=== PATIENT | female | born 1995 | race Caucasian/White ===

== ENCOUNTER 2019-12-22 22:20 | Emergency (ER) | payer OTHER, SELFPAY ==
[2019-12-22 22:24] VITALS: BP 149/82; PULSE 97; RESP 16; TEMP 36.2; O2SAT 100
--- NOTE | 2019-12-22 22:41 | ED.PREGNANCY ---
HPI - General Chief complaint: Vaginal Bleeding Stated complaint: preg, bleeding Time Seen by Provider: 12/22/19 22:39 Source: patient and RN notes reviewed Mode of arrival: other Limitations: no limitations History of Present Illness HPI Narrative: Pt is a 24 y/o female who presents to the ED with c/o vaginal bleeding that began an hour ago after having sexual intercourse. Pt is 12 weeks gestation. She states that she passed a blood clot, but denies passing any tissue. Pt denies being in any pain. Pt has confirmed her with her OBGYN, Dr. Sandhu. Pt denies nausea, vomiting, dysuria, urinary hesitancy, and urinary frequency. MD Complaint: vaginal bleeding Onset (ago): hour(s) (1) Pain Consistency: other (none) Associated symptoms: denies other symptoms Vaginal discharge: none Vaginal bleeding: clots Patient : Yes Number of Weeks : 12 Review of Systems Review of Systems: All systems reviewed & are unremarkable except as noted in HPI and below Gastrointestinal: Gastrointestinal: Denies nausea and Denies vomiting Genitourinary: Genitourinary: Reports abnormal vaginal bleeding, Denies nocturia, Denies dysuria and Denies urinary hesitancy PMFSH Past Medical History Medical History (Updated 12/22/19 @ 22:58 by Brannon Sigala MD) Patient denies significant medical history Surgical History Surgical History (Updated 12/22/19 @ 22:49 by Ginger Connelly) Surgical history unknown Social History Social History (Updated 12/22/19 @ 22:49 by Ginger Connelly) Smoking status: Never smoker Exam Const: General: healthy appearing and no acute distress Nutritional Appearance: well nourished HENMT: Mouth: Yes lip normal and Yes moist mucous membranes Eyes: Conjunctivae: conjunctivae normal Pupils: Equal, round and reactive pupils present Resp: Effort & Inspection: normal respiratory effort Auscultation: clear to auscultation bilaterally Cardio: Rate: regular rate Rhythm: regular rhythm Heart sounds: no murmurs GI: GI Palp: Yes Soft to palpation and No Tenderness to palpation present (GI) Auscultation: normal bowel sounds Back/Spine/Pelvis: Back: other (Full ROM) Skin: General skin exam: normal color, dry skin and other (warm) Neuro: General: patient oriented x3 and other (alert) Speech: normal speech Extrem: General: full ROM Psych: Mental Status: mental status grossly normal Affect: normal affect Course Vital Signs Vital signs: Vital Signs Temperature 36.2 C L 12/22/19 22:24 Pulse Rate 97 12/22/19 22:24 Respiratory Rate 16 12/22/19 22:24 Blood Pressure 149/82 H 12/22/19 22:24 Pulse Oximetry 100 12/22/19 22:24 Temperature 36.2 C L 12/22/19 22:24 Pulse Rate 86 12/23/19 00:07 Respiratory Rate 16 12/23/19 00:07 Blood Pressure 119/88 12/23/19 00:07 Pulse Oximetry 100 12/23/19 00:07 Procedures Other Procedure Procedure 1: Other Procedure: Bedside Ultrasound Fetus grossly normal for stated dates Reassuring movment FHR 157 MDM - OB/Uterine Contractions MDM Narrative Medical decision making narrative: Threatened , subchorionic hematoma, Rh negative Medical Records Attestation: I reviewed the patient's medical records. Lab Data Attestation: I reviewed the patient's lab results. Labs: Lab Results 12/22/19 Range/Units 22:57 Blood Type O Positive Doses of RhIg Required 0 Discharge Plan Discharge Clinical Impression: Vaginal bleeding affecting early Patient Disposition: Home, Self-Care Condition: Stable Instructions: Threatened Miscarriage (ED) Follow-up/Referrals: Fariba Sandhu MD [Physician] - UNKNOWN,DOCTOR [Primary Care Provider] - Discharge Date/Time: 12/23/19 00:45
[2019-12-23 00:07] VITALS: BP 119/88; PULSE 86; RESP 16; O2SAT 100
== END 2019-12-23 00:45 | disposition home or self-care (01) ==
PROVIDERS: Emergency Provider Emergency Medicine
DX: O20.9 Hemorrhage in early pregnancy, unspecified (principal); Z3A.12 12 weeks gestation of pregnancy
CPT/HCPCS: 36415; 86900; 86901; 99282

== ENCOUNTER 2020-06-20 00:03 | Inpatient (IN) | payer OTHER, SELFPAY ==
[2020-06-20] VITALS (109 sets, daily range): BP systolic 94–192; BP diastolic 42–124; PULSE 51–141; RESP 16; TEMP 36.1–37; O2SAT 92–100; BMI 30.4
[2020-06-20] MEDS: LACTATED RINGERS 1,000 ML 125 ML IV CONT (01:30)
--- NOTE | 2020-06-20 01:46 | LDADM ---
This patient, Doreen Cobb, was admitted to Labor/Delivery/Recovery 108 on 06/20/20 at 00:03. Plans for labor, pain management and were discussed with patient. Patient/family oriented to hospital policies and general routines including ID bracelet, bed and alarms, visiting hours, pain management, procedures, bathroom and other care routines, personal items, smoking policy, room service/diet and guest tray routines, infant security routines, and visiting hours. Patient/Family are encouraged to report perceived risks to care and to ask questions if they do not understand what they are told or what they should do. See OBIX for further documentation.
[2020-06-20 02:02] LABS: Basophils Percent Auto 0.2 % (0.2-1.2); Eosinophils Percent Auto 0.1 % (0-4.4); Hematocrit 39.1 % (37.0-47.0); Hemoglobin 13.3 g/dL (12.0-15.0); Immature Granulocyte Absolute 0.05 K/mm3 (0.00-0.031); Immature Granulocyte Percent A 0.4 % (0-0.5); Lymphocytes Percent Auto 18.4 % (18.3-44.2); Mean Corpuscular Hemoglobin 29.9 pg (26-34); Mean Corpuscular Volume 87.9 fl (80-100); Mean Platelet Volume 10.5 fl (7.4-10.4); Monocytes Absolute Auto 0.6 K/mm3 (0.1-0.6); Monocytes Percent Auto 4.5 % (2.6-8.5); Neutrophils Absolute Auto 9.5 K/mm3 (1.3-6.7); Neutrophils Percent Auto 76.4 % (45.5-73.1); Platelet Count Result 229 k/mm3 (150-375); Red Blood Count 4.45 M/mm3 (4.2-5.4); Red Cell Distribution Width 13.5 % (11.5-14.5); White Blood Count 12.5 K/mm3 (4.5-10.0)
[2020-06-20 02:04] LABS: Glucose Point of Care 119 (65-105)
--- NOTE | 2020-06-20 02:26 | WPDANESEPPF ---
Anes - Initial Pre Proc Eval Procedure: labor epidural Date/Time: 06/20/20 02:26 Surgeon: Fariba Sandhu MD Pre Op Diagnosis: labor pain Pre Op Diagnosis: Contractions Patient Data Age: 25 Gender: F Height: 1.55 m Weight: 73 kg Last Vital Signs Pulse 86 06/20/20 02:24 BP 102/71 06/20/20 02:24 Pulse Ox 100 06/20/20 02:23 Allergies Allergy/AdvReac Type Severity Reaction Status Date / Time No Known Drug Allergies Allergy Unknown Unknown Verified 06/07/20 13:39 Home Medications Medication Instructions Recorded Confirmed Type PNV cmb#95-ferrous fumarate-FA 1 tablet PO DAILY 06/07/20 06/07/20 History [] insulin NPH isoph U-100 human 5 unit SUBCUT HS 06/07/20 06/07/20 History [Humulin N NPH U-100 Insulin] Laboratory Tests 06/20/20 06/20/20 06/20/20 01:54 01:57 01:57 WBC 12.5 K/mm3 H K/mm3 (4.5-10.0) RBC 4.45 M/mm3 M/mm3 (4.2-5.4) Hgb 13.3 g/dL g/dL (12.0-15.0) Hct 39.1 % % (37.0-47.0) MCV 87.9 fl fl (80-100) MCH 29.9 pg pg (26-34) MCHC 34.0 g/dl g/dl (32-36) RDW 13.5 % % (11.5-14.5) Plt Count 229 k/mm3 k/mm3 (150-375) MPV 10.5 fl H fl (7.4-10.4) Immature Gran % (Auto) 0.4 % % (0-0.5) Neut % (Auto) 76.4 % H % (45.5-73.1) Lymph % (Auto) 18.4 % % (18.3-44.2) Angelina % (Auto) 4.5 % % (2.6-8.5) Eos % (Auto) 0.1 % % (0-4.4) Baso % (Auto) 0.2 % % (0.2-1.2) Lymph # (Auto) 2.30 K/mm3 K/mm3 (0.9-3.2) Angelina # (Auto) 0.6 K/mm3 K/mm3 (0.1-0.6) Eos # (Auto) 0.0 K/mm3 K/mm3 (0-0.3) Baso # (Auto) 0.0 K/mm3 K/mm3 (0.0-0.1) Abs Immat Gran (auto) 0.05 K/mm3 H K/mm3 (0.00-0.031) Absolute Neuts (auto) 9.5 K/mm3 H K/mm3 (1.3-6.7) Absolute Nucleated RBC 0.0 K/mm3 K/mm3 (0.0-0.012) Nucleated RBC % 0.0 % % (0.0-0.2) POC Capillary Glucose 119 mg/dl H mg/dl (65-105) RPR Pending Patient hx anesthesia problems: none Family hx anesthesia problems: none [facility] Past Medical History Medical History (Updated 12/24/19 @ 00:01 by Huma Miller) Patient denies significant medical history Surgical History Surgical History (System 12/23/19 @ 07:51 by Aurelia Philip) Surgical history unknown Family History Family History (Updated 06/07/20 @ 13:42 by Paul Castañeda RN) Grandparent Diabetes mellitus Hypertension Social History Social History (System 12/23/19 @ 07:51 by Aurelia Philip) Smoking status: Never smoker Substance use: never Spiritual care concerns: No Anes - Eval Final PreProcedure Day of Procedure 06/20/20 02:26 Patient weight: obese ASA classification: III Anesthesia type and monitoring: regional epidural Informed Consent: The patient's anesthetic plan and its attendant risks and benefits were discussed with the patient/family/POA. Questions were solicited and answers provided to the satisfaction of the patient/family/POA.
[2020-06-20 04:18] LABS: Glucose Point of Care 104 (65-105)
[2020-06-20] MEDS: OXYTOCIN 30 UNITS/NS 500 ML 30 UNITS/500 ML BAG IV CONT (06:50)
[2020-06-20 07:37] LABS: Glucose Point of Care 111 (65-105)
--- NOTE | 2020-06-20 07:46 | WPDOBADMIT ---
Obstetrics - Admit Note Admission Note: 25y/o here in spontaneous labor. GDM insulin controlled. Appropriate size baby. Anticipate . 8cm AROM performed. record reviewed. No pertinent additions to the history and/or any subsequent changes in the physical findings that are not consistent with the expected course of the were found. Additions to the history and/or subsequent changes in the physical findings follow. None.
--- NOTE | 2020-06-20 09:36 | PM.OBPRVD ---
OB - Delivery Note Procedure Delivery date: 06/20/20 Induction method: none Delivery augmentation: rupture of membranes Delivery monitor: external FHT and external uterine Episiotomy description: None Laceration description: None Anesthesia type: Epidural Narrative: Called @ 919 and informed had delivered in the bed with assist from RN. Upon arrival cord blood and gasses had already been collected. Placenta delivered without difficulty. Mother and baby stable. [place] Baby Date of : 06/20/20 Time of : 09:16 Weeks of gestation at delivery: 37 gender: Male presentation: vertex Placenta delivery description: Spontaneous
[2020-06-20] MEDS: OXYTOCIN 30 UNITS/NS 500 ML 30 UNITS/500 ML BAG 125 UNITS IV CONT (10:00)
[2020-06-20 11:11] LABS: Rapid Plasma Reagin Non-Reactive (NonReactive)
--- NOTE | 2020-06-20 16:09 | PC.NURSE ---
1350 Pt admitted to second floor OB, room 286 per wheelchair from labor and delivery after spontaneous vaginal delivery of viable male at 0916 today with Radha BRYANT for Dr Sandhu. Mother is a and is choosing to breast feed infant. FOB present for delivery, not here at this time. Admission folder reviewed with pt; pt's assessment WNL, and VSS.
[2020-06-21 05:34] LABS: Hemoglobin 10.9 g/dL (12.0-15.0)
--- NOTE | 2020-06-21 07:43 | P.PNOB_ITS ---
OB - PN: Subj Subjective Date/time seen: 06/21/20 07:43 Patient comments: no complaints, pain well controlled and other (Lochia similar to menses) [place] baby status: doing well OB - PN: Obj Data Labs CBC & Chem 7: 06/21/20 05:28 Labs: Laboratory Results - last 24 hr 06/20/20 06/21/20 01:57 05:28 Hgb 10.9 L Hct 33.0 L RPR Non-reactive OB - PN A/P Plan day: 1 (s/p vaginal delivery, doing well) Plan: routine care and discharge home (Follow up in 4 weeks) Time Spent With Patient Time: Total time spent is greater than 50% in coordination of care (as documented) at patient's floor/unit and/or counseling patient: Time with patient: less than 15 minutes Exam Const: General: no acute distress GI: Inspection: other (Fundus firm and nontender at umbilicus) GI Palp: Yes Soft to palpation and No Tenderness to palpation present (GI) Extrem: General: no edema
[2020-06-21 07:45] VITALS: BP 113/71; PULSE 67; RESP 16; TEMP 36.4; O2SAT 99
--- NOTE | 2020-06-21 10:05 | PC.NURSE ---
Consulted with patient, mother called out for assist with waking , reporting sleepiness since circumcision . This is mother's third child to breastfeed. Reviewed feeding cues, frequencies, duration of feedings, feeding elimination flow sheet, and signs of adequate intake. Demonstrated stimulation techniques to wake for feeding. Infant easily awoken and showing feeding cues. Assisted with to breast. Reviewed positioning/alignment in cross cradle, holding breast in U hold and guided asymmetrical latch on. was able to latch correctly with first attempt. Infant nursed eagerly, with steady draws and frequent swallowing noted. Reviewed signs of a correct latch, effective nursing and suck swallow ratio. was able to maintain latch without discomfort to mother. Nipple care reviewed. Suggested to stimulate while feeding to keep infant awake and nursing effectively for increased intake and to assist with maintaining deep latch. Demonstrated how to adjust latch more deeply while feeding. Instructed mother to call out for RN assistance if she is unable to latch for feeding or she has discomfort with nursing. Instructed feeding should be initiated three hours from start of last feeding or if feeding cues are noted before. Mother voiced understanding of information shared. Mother wishes for discharge after 24 hours. Observed mother verbalizes she is able to independently latch infant with appropriate positioning/alignment. She denies any nipple discomfort, is feeding as required and waking infant to feed if needed. Infant has had at least 8 effective feedings in the past 24 hours, and is currently meeting outcomes for weight, output, jaundice and feeding frequencies. Mother states she feels confident to continue effective at home. Reviewed transition to breast milk, signs of adequate intake, and engorgement/relief. Instructed to call ICP if intake/output less than required. Reviewed regular medications mother is taking. Information provided per [place]. Reviewed community resources on the [facility] website and in the Mom/Baby guide. Information on outpatient services provided. Mother has no further questions at this time.
[2020-06-22 10:09] VITALS: BP 121/79; PULSE 85; RESP 16; TEMP 36.6; O2SAT 99
--- NOTE | 2020-07-11 08:12 | PM.OBDSVD ---
DS: Admitting Diagnosis Admitting Diagnosis Admitting Diagnosis: Contractions DS: Discharge Diagnosis Discharge Diagnosis (1) Vaginal delivery: Code(s): O80 - Encounter for full-term uncomplicated delivery Status: Acute OB - DS: Summary OB Procedures : None OB Procedures Intrapartum: Spontaneous Vag Delivery OB Procedures: : None Time Spent with Patient Time attestation: Total time spent providing and/or coordinating discharge services: DS: Data Data Completed and Pending Completed studies during hospitalization: Pending at discharge 06/20/20 09:22 Surgical [PTH] Routine Discharge Plan Discharge Attending physician on discharge: Fariba Sandhu Consulting providers: David Alexandre ; Caitlyn Holloway Discharging Clinician: Marie Angel Patient Disposition: Home, Self-Care Activity: may shower and pelvic rest Diet: regular Discharge Instructions: Education: Mom and Baby Guide Given to: Mother Follow-Up: Call your delivering provider's office for an appointment to be seen in: 4 Weeks Mom and baby should come to the [facility] for the follow-up appointment. Appointment Date/Time: June 22, 2020 at 10:00 am What to expect at your follow-up visit: Blood Pressure Check Physical Assessment Call [phone] if you are unable to keep your appointment time. BREAST CARE: * Wear a snug supportive bra. * For engorgement discomfort: Breast Feeding: * Apply warm moist washcloths * Express milk as needed to relieve engorgement * Wear loose clothing * For sore nipples: * Identify correct latch-on * Apply warm moist washcloths before and after nursing * Air dry nipples after nursing * May apply Lansinoh cream to nipples EPISIOTOMY/PERINEAL CARE: * Until bleeding stops, use your hernesto bottle after urinating * Change your pad frequently throughout the day * You may take sitz baths several times a day (fill your bathtub with warm water and soak for 20 minutes.) Do NOT bathe in the water * No tub baths until seen by your physician - You may shower ACTIVITY: * Rest as much as possible. * Do not exercise or lift anything heavier than your baby (such as laundry or other children.) * Avoid stairs or driving as much as possible. * Do not put anything into the vagina. No douching, tampons, or sexual activity until seen by physician. NOTIFY PHYSICIAN IF YOU HAVE ANY QUESTIONS OR IF ANY OF THE FOLLOWING SYMPTOMS OCCUR: * If your perineum becomes red, swollen, or more painful than what you have experienced in the hospital. * If your vaginal bleeding becomes foul smelling. * If your vaginal bleeding becomes more heavy than a period or if your bleeding changes from pink to bright red. However, you may pass an occasional walnut-sized clot once or twice for the first week . * If you experience a sharp, shooting pain in your calves. * If you discover a hard, reddened area on your breast or if you experience flu-like symptoms. DIET: * Eat regular, well-balanced meals. * Drink plenty of fluids daily. If , drink to thirst. Patient Instructions: Your Baby (DC), and Nipple Soreness (DC), and Breast Engorgement (DC) Stand Alone Forms: General Discharge Information Follow-up/Referrals: Caitlyn Holloway CNM [Certified Nurse [employer] Supervisor] - 4 Weeks Discharge Medications: New ibuprofen 600 mg Tablet 600 mg PO Q6H PRN (Reason: Cramping) Qty: 60 RF: 0 Continued PNV cmb#95-ferrous fumarate-FA [] 28 mg iron- 800 mcg Tablet 1 tablet PO DAILY RF: 0 Discontinued Humulin N NPH U-100 Insulin 100 unit/mL Suspension 5 unit SUBCUT HS RF: 0 Date of admission: 06/20/20 00:03 Primary Care Provider: UNKNOWN,DOCTOR Admitting Provider: Marie Angel Attending physician on
== END 2020-06-21 12:27 | disposition home or self-care (01) | DRG 560 ==
LOC: ANHLDR 01:41 → ANHOB2 06-21 07:44 → ANHLDR 06-22 11:22 → ANHOB2 06-22 11:22
PROVIDERS: Advanced Practice Midwife; Obstetrics & Gynecology; Admitting Provider Obstetrics & Gynecology; Visit Provider Obstetrics & Gynecology
DX: O24.424 Gestational diabetes mellitus in childbirth, insulin controlled (principal); O69.89X0 Labor and delivery complicated by other cord complications, not applicable or unspecified; Z3A.37 37 weeks gestation of pregnancy; Z37.0 Single live birth
CPT/HCPCS: 36415; 85014; 85018; 85025; 86592; 86850; 86900; 86901; 88307; J2590; J7120

== ENCOUNTER 2021-07-31 10:43 | Inpatient (IN) | payer OTHER, SELFPAY ==
[2021-07-31] VITALS (13 sets, daily range): BP systolic 80–138; BP diastolic 15–101; PULSE 46–83; RESP 16; TEMP 36.1–36.9; O2SAT 100; BMI 30.8
--- NOTE | ~2021-07-31 | US_ITS ---
EXAMINATION: US OB limited DATE: 07/31/2021 11:27 INDICATION: position assessment during late third trimester TECHNIQUE: Real-time ultrasound of the pelvis was performed. The interpreting radiologist was not pre sent for the study. COMPARISON: None. FINDINGS: There is a single living fetus in vertex presentation. The placenta is to the right. IMPRESSION: 1. Single living fetus in vertex presentation. Reviewed, dictated and finalized at location B.
--- OUTSIDE RECORDS SUMMARY | 2021-07-31 11:00 | XMS_ITS | Encounter Summary ---
:1995 Author Care Team Providers Name Role Phone Tali (Ob) Primary Care Provider [phone] Reason for Visit None recorded. Assessment and Plan 1. Gestational diabetes mellitus , class A>1< ? non-stress test Discussion Note: None recorded.Patient educational handouts: No information available. Plan of Care Reminders Provider Appointments Nst 08/01/2021 Nst, , EQ UIP 10:30AM ? Ob Routine 08/04/2021 Lexus Rodríguez, 11:15AM CNM ? Nst 08/04/2021 Nst, , EQUI P 10:30AM ? Nst 08/08/2021 Nst, , EQUI P 9:30AM ? Ob Routine 08/11/2021 Anabel Dubose 10:00AM MD [facility] ? Nst 08/11/2021 Nst, , EQUI P 9:30AM ? Nst 08/15/2021 Nst, , EQUI P 9:30AM ? Ob Routine 08/18/2021 Tamika Th erese 10:30AM MD [facility] ? U/s Ob 08/18/2021 Ultrasound , TECH Growth 10:00AM ? Nst 08/18/2021 Nst, , EQUI P 9:30AM ? Follow up on or around Joss Dubose 09/22/2021 MD [facility] Lab None ? ? recorded. Referral None ? ? recorded. Procedures None ? ? recorded.
--- OUTSIDE RECORDS SUMMARY | 2021-07-31 11:00 | XMS_ITS | Encounter Summary ---
:1995 Author Care Team Providers Name Role Phone Tali (Ob) Primary Care Provider [phone] Reason for Visit OB visit Assessment and Plan Assessment Note Patient is ___weeks . Discu ssed plan. 1. Routine care Discussion Note: None recorded.Patient educational handouts: No [...] Routine 08/18/2021 Tamika Th erese 10:30AM MD Martio ? U/s Ob 08/18/2021 Ultrasound , TECH Growth 10:00AM ? Nst 08/18/2021 Nst, , EQUI P 9:30AM ? Follow up on or around Joss Dubose 09/22/2021 MD [facility] Lab None ? ? recorded. Referral None ? ? recorded. Procedures None ?
--- OUTSIDE RECORDS SUMMARY | 2021-07-31 11:01 | XMS_ITS | Encounter Summary ---
:1995 Author Care Team Providers Name Role Phone Tali (Ob) Primary Care Provider [phone] Reason for Visit None recorded. Assessment and [...]
--- OUTSIDE RECORDS SUMMARY | 2021-07-31 11:01 | XMS_ITS | Encounter Summary ---
:1995 Author Care Team Providers Name Role Phone Tali (Ob) Primary Care Provider [phone] Reason for Visit OB visit Assessment and Plan 1. Gestational diabetes mellitus , class A>1< Discussion Note: None recorded.Patient educational handouts: No [...] ? recorded. Procedures None ? ? recorded. Surgeries None ? ?
--- OUTSIDE RECORDS SUMMARY | 2021-07-31 11:02 | XMS_ITS | Encounter Summary ---
:1995 Author Care Team Providers Name Role Phone Tali (Ob) Primary Care Provider [phone] Reason for Visit None recorded. Assessment and [...]
--- OUTSIDE RECORDS SUMMARY | 2021-07-31 11:02 | XMS_ITS | Encounter Summary ---
:1995 Author Care Team Providers Name Role Phone Tali (Ob) Primary Care Provider [phone] Reason for Visit None recorded. Assessment and Plan 1. Gestational diabetes mellitus , class A>1< ? US, obstetric, follow-up ? US, obstetric, biophysical profile + non-stress test Discussion Note: None recorded.Patient educational handouts: No information available. Plan of Care Reminders Provider Appointments Nst 08/01/2021 Nst, , EQ UIP 10:30AM ? Ob Routine 08/04/2021 Lexus E 11:15AM ANNETTE Rodríguez ? Nst 08/04/2021 Nst, , EQUI P 10:30AM ? Nst 08/08/2021 Nst, , EQUI P 9:30AM ? Ob Routine 08/11/2021 Anabel Dubose 10:00AM MD [facility] ? Nst 08/11/2021 Nst, , EQUI P 9:30AM ? Nst 08/15/2021 Nst, , EQUI P 9:30AM ? Ob Routine 08/18/2021 Tamika Th erese 10:30AM MD Mar[facility] ? U/s Ob Growth 08/18/2021 Ult rasound, 10:00AM TECH ? Nst 08/18/2021 Nst, , EQUI P 9:30AM ? Follow up on or around Joss Dubose 09/22/2021 MD [facility] Lab None ? ? recorded. Referral None ? ?
--- OUTSIDE RECORDS SUMMARY | 2021-07-31 11:02 | XMS_ITS | Encounter Summary ---
:1995 Author Care Team Providers Name Role Phone Tali (Ob) Primary Care Provider [phone] Reason for Visit None recorded. Assessment and [...]
--- OUTSIDE RECORDS SUMMARY | 2021-07-31 11:03 | XMS_ITS | Encounter Summary ---
:1995 Author Care Team Providers Name Role Phone Tali (Ob) Primary Care Provider [phone] Reason for Visit OB visit Assessment and [...]
--- OUTSIDE RECORDS SUMMARY | 2021-07-31 11:04 | XMS_ITS | Encounter Summary ---
:1995 Author Care Team Providers Name Role Phone Tali (Ob) Primary Care Provider [phone] Reason for Visit None recorded. Assessment and [...]
--- OUTSIDE RECORDS SUMMARY | 2021-07-31 11:04 | XMS_ITS | Encounter Summary ---
:1995 Author Care Team Providers Name Role Phone Tali (Ob) Primary Care Provider [phone] Reason for Visit OB visit OB [id number] EDC 08/11/2021 LMP 10/26/2020 Assessment and Plan Assessment Note Patient is __35_weeks . Dis cussed plan. 1. Routine care Discussion Note: None [...]
--- OUTSIDE RECORDS SUMMARY | 2021-07-31 11:05 | XMS_ITS | Encounter Summary ---
:1995 Author Care Team Providers Name Role Phone Tali (Ob) Primary Care Provider [phone] Reason for Visit None recorded. Assessment and [...]
--- OUTSIDE RECORDS SUMMARY | 2021-07-31 11:05 | XMS_ITS | Encounter Summary ---
:1995 Author Care Team Providers Name Role Phone Tali (Ob) Primary Care Provider [phone] Reason for Visit None recorded. Assessment and Plan 1. condition affecting obs tetrical care of mother ? US, obstetric, biophysical profile Discussion Note: None recorded.Patient educational handouts: No [...] P 9:30AM ? Ob Routine 08/18/2021 Tamika Ayala erese 10:30AM MD [facility] ? U/s Ob Growth 08/18/2021 Ult rasound, 10:00AM TECH ? Nst 08/18/2021 Nst, , EQUI P 9:30AM ? Follow up on or around Joss Dubose 09/22/2021 MD [facility] Lab None ? ? recorded. Referral None ? ? recorded. Procedure
--- OUTSIDE RECORDS SUMMARY | 2021-07-31 11:05 | XMS_ITS | Encounter Summary ---
:1995 Author Care Team Providers Name Role Phone Tali (Ob) Primary Care Provider [phone] Reason for Visit OB visit OB [id number] EDC 08/11/2021 LMP Assessment and Plan Assessment Note Patient is __34_weeks . Dis cussed plan. 1. Routine care [...]
--- OUTSIDE RECORDS SUMMARY | 2021-07-31 11:05 | XMS_ITS | Encounter Summary ---
:1995 Author Care Team Providers Name Role Phone Tali (Ob) Primary Care Provider [phone] Reason for Visit None recorded. Assessment and [...]
--- OUTSIDE RECORDS SUMMARY | 2021-07-31 11:06 | XMS_ITS | Encounter Summary ---
:1995 Author Care Team Providers Name Role Phone Tali (Ob) Primary Care Provider [phone] Reason for Visit None recorded. Assessment and [...]
--- OUTSIDE RECORDS SUMMARY | 2021-07-31 11:06 | XMS_ITS | Encounter Summary ---
:1995 Author Care Team Providers Name Role Phone Tali (Ob) Primary Care Provider [phone] Reason for Visit None recorded. Assessment and [...]
--- OUTSIDE RECORDS SUMMARY | 2021-07-31 11:06 | XMS_ITS | Encounter Summary ---
:1995 Author Care Team Providers Name Role Phone Tali (Ob) Primary Care Provider [phone] Reason for Visit OB visit OB [id number] EDC 08/11/2021 LMP 10/26/20 Assessment and Plan Assessment Note Patient is _33__weeks . Dis cussed plan. 1. Routine care [...]
--- OUTSIDE RECORDS SUMMARY | 2021-07-31 11:07 | XMS_ITS | Encounter Summary ---
:1995 Author Care Team Providers Name Role Phone Tali (Ob) Primary Care Provider [phone] Reason for Visit OB visit [id number] Assessment and Plan 1. Routine care Discussion Note: None recorded.Patient [...] recorded. Procedures None ? ? recorded. Surgeries N
--- OUTSIDE RECORDS SUMMARY | 2021-07-31 11:07 | XMS_ITS | Encounter Summary ---
:1995 Author Care Team Providers Name Role Phone Tali (Ob) Primary Care Provider [phone] Reason for Visit None recorded. Assessment and [...]
--- OUTSIDE RECORDS SUMMARY | 2021-07-31 11:07 | XMS_ITS | Encounter Summary ---
:1995 Author Care Team Providers Name Role Phone Tali (Ob) Primary Care Provider [phone] Reason for Visit None recorded. Assessment and [...]
--- OUTSIDE RECORDS SUMMARY | 2021-07-31 11:08 | XMS_ITS | Encounter Summary ---
:1995 Author Care Team Providers Name Role Phone Tali (Ob) Primary Care Provider [phone] Reason for Visit OB visit Assessment and Plan Assessment Note Patient is ___weeks . Discu ssed plan. 1. Routine care ? RPR (rapid plasma reagin), serum ? unlisted lab - HIV 1/2 ant igen/antibody, reflex confirmation ? hemoglobin (Hb), blood ? hematocrit, blood Discussion Note: None recorded.Patient educational handouts: No [...] Marito ? U/s Ob 08/18/2021 Ultrasound , Growth 10:00AM TECH ? Nst 08/18/2021 Nst, , EQUI P 9:30AM ?
--- OUTSIDE RECORDS SUMMARY | 2021-07-31 11:09 | XMS_ITS ---
:1995 Author Care Team Providers Name Role Phone MO ARNOLD Primary Care Provider [phone] Allergies Code Code System Name Reaction Severity Status Onset NKDA ? Medications Name Status Start Date Stop Date ? ? Completed ? 05/03/2020 Tubersol 5 tub. unit/0.1 mL intradermal injection solution Activ e ? Not available Administer .1ml interdermally Problems No Known Problems Procedures None recorded. Results Lab Results Date Name Specimen Result Interpretation Description Value Range Status Address ? 05/06/2020 PPD (Purified ? Result Negative ? ? In-Office Protein Order: Derivative), Inte rnal Use Skin Test Only DO Not Attach Compendium DO Not Attach Compendium , Do Not Delete/ashli ge 04/17/2018 PPD (Purified ? Result Negative ? ? In-Office Protein Order: Derivative), Inte rnal Use Skin Test Only DO Not Attach Compendium DO Not Attach Compendium , Do
--- NOTE | 2021-07-31 11:23 | LDADM ---
This patient, Doreen Cobb, was admitted to Labor/Delivery/Recovery 106 on 07/31/21 at 10:43. Plans for labor, pain management and were discussed with patient. Patient/family oriented to hospital policies and general routines including ID bracelet, bed and alarms, visiting hours, pain management, procedures, bathroom and other care routines, personal items, smoking policy, room service/diet and guest tray routines, infant security routines, and visiting hours. Patient/Family are encouraged to report perceived risks to care and to ask questions if they do not understand what they are told or what they should do. See OBIX for further documentation.
[2021-07-31 11:52] LABS: Basophils Percent Auto 0.3 % (0.2-1.2); Eosinophils Percent Auto 0.1 % (0-4.4); Hematocrit 42.4 % (37.0-47.0); Immature Granulocyte Absolute 0.07 K/mm3 (0.00-0.031); Immature Granulocyte Percent A 0.5 % (0-0.5); Lymphocytes Absolute Auto 2.12 K/mm3 (0.9-3.2); Lymphocytes Percent Auto 13.8 % (18.3-44.2); Mean Corpuscular Hemoglobin 29.9 pg (26-34); Mean Corpuscular Volume 90.6 fl (80-100); Mean Platelet Volume 10.5 fl (7.4-10.4); Monocytes Absolute Auto 0.6 K/mm3 (0.1-0.6); Neutrophils Absolute Auto 12.5 K/mm3 (1.3-6.7); Neutrophils Percent Auto 81.3 % (45.5-73.1); Platelet Count Result 212 k/mm3 (150-375); Red Blood Count 4.68 M/mm3 (4.2-5.4); Red Cell Distribution Width 13.7 % (11.5-14.5); White Blood Count 15.4 K/mm3 (4.5-10.0)
[2021-07-31 11:55] LABS: Glucose Point of Care 110 mg/dl (65-105)
[2021-07-31] MEDS: OXYTOCIN 30 UNITS/NS 500 ML 30 UNITS/500 ML BAG 999 UNITS IV CONT (12:33)
--- NOTE | 2021-07-31 12:46 | WPDOBADMIT ---
Obstetrics - Admit Note Admission Note: 26 y/o here in spontaneous labor. complicated by diet controlled GDM. record reviewed. No pertinent additions to the history and/or any subsequent changes in the physical findings that are not consistent with the expected course of the were found. Additions to the history and/or subsequent changes in the physical findings follow. None.
--- NOTE | 2021-07-31 12:51 | PM.OBPRVD ---
OB - Delivery Note Procedure Delivery date: 07/31/21 Procedure: Induction method: none Delivery monitor: none Route of delivery: Episiotomy description: None Laceration Description: None Quantitative Blood Loss (ml): 72 Anesthesia type: None Baby Date of : 07/31/21 Time of : 12:33 Weeks of gestation at delivery: 38 Infant gender: Female Weight (pounds): 7 Weight (ounces): 5 presentation: vertex position: Left Occiput Anterior Placenta delivery description: Spontaneous and Abnormal Configuration (Abnormal insertion) Narrative: Mother and baby in stable condition. Cord gasses collected and handed off to staff.
[2021-07-31] MEDS: OXYTOCIN 30 UNITS/NS 500 ML 30 UNITS/500 ML BAG 125 UNITS IV CONT (13:00)
--- NOTE | 2021-07-31 15:05 | OBPPTRN ---
Patient transferred to post room # 290 ambulatory accompanied by spouse and infant. Support person present. Oriented to unit, room, information board, rooming in, admission packet and security measures. Patient verbalizes understanding.PT received instructions per one to one discussion, mom baby care guide and demonstrations this shift. no barriers to learning identified. Pt and spouse both recipients of such instructions.
[2021-07-31] MEDS: DOCUSATE SODIUM 100 MG CAPSULE PO (17:58)
[2021-08-01 04:00] VITALS: BP 118/74; PULSE 52; RESP 16; TEMP 36.4; O2SAT 100
[2021-08-01 05:39] LABS: Hematocrit 31.5 % (37.0-47.0); Hemoglobin 10.6 g/dL (12.0-15.0)
[2021-08-01 07:29] LABS: Rapid Plasma Reagin Non-Reactive (NonReactive)
--- NOTE | 2021-08-01 07:41 | PM.OBPNVD ---
OB - PN: Subj Subjective Date/time seen: 08/01/21 07:41 Patient comments: no complaints baby status: doing well OB - PN: Obj Data Labs CBC & Chem 7: 08/01/21 04:31 Labs: Laboratory Results - last 24 hr 07/31/21 07/31/21 07/31/21 11:19 11:19 11:19 WBC 15.4 H RBC 4.68 Hgb 14.0 D Hct 42.4 MCV 90.6 MCH 29.9 MCHC 33.0 RDW 13.7 Plt Count 212 MPV 10.5 H Immature Gran % (Auto) 0.5 Neut % (Auto) 81.3 H Lymph % (Auto) 13.8 L Banner % (Auto) 4.0 Eos % (Auto) 0.1 Baso % (Auto) 0.3 Lymph # (Auto) 2.12 Banner # (Auto) 0.6 Eos # (Auto) 0.0 Baso # (Auto) 0.0 Abs Immat Gran (auto) 0.07 H Absolute Neuts (auto) 12.5 H Absolute Nucleated RBC 0.0 Nucleated RBC % 0.0 POC Capillary Glucose RPR Non-reactive Blood Type O Positive Antibody Screen Negative 07/31/21 08/01/21 11:49 04:31 WBC RBC Hgb 10.6 L D Hct 31.5 L MCV MCH MCHC RDW Plt Count MPV Immature Gran % (Auto) Neut % (Auto) Lymph % (Auto) Banner % (Auto) Eos % (Auto) Baso % (Auto) Lymph # (Auto) Banner # (Auto) Eos # (Auto) Baso # (Auto) Abs Immat Gran (auto) Absolute Neuts (auto) Absolute Nucleated RBC Nucleated RBC % POC Capillary Glucose 110 H RPR Blood Type Antibody Screen Imaging Radiologist's impression: Impressions Obstetrics Ultrasound 07/31/21 11:33 IMPRESSION: 1. Single living fetus in vertex presentation. OB - PN A/P Plan day: 1 Plan: routine care and discharge home (Doing well. Desires discharge if pedi agreeable.) Time Spent With Patient Time: Total time spent is greater than 50% in coordination of care (as documented) at patient's floor/unit and/or counseling patient: Time with patient: less than 15 minutes Review of Systems Review of Systems: All systems reviewed & are unremarkable except as noted in HPI and below Exam Narrative: Fundus firm and vaginal flow controlled. No lower ext redness, warmth, or edema. Negative homans. Const: General: comfortable Chest: Breast/axilla inspection: normal inspection of the breasts Resp: Effort & Inspection: normal respiratory effort Cardio: Rate: regular rate GI: GI Palp: Yes Soft to palpation Psych: Appearance: grossly normal Affect: normal affect Attitude: cooperative Thought content: Yes Normal thought content present Judgement: Good judgement present (Psych)
[2021-08-01 08:00] VITALS: BP 132/74; PULSE 72; RESP 18; TEMP 36.4
--- NOTE | 2021-08-01 08:55 | PC.NURSE ---
Consult with pt., observed mother is able to independently latch infant with appropriate positioning/alignment. Infant eagerly latches on first attempt with long rhythmical draws and frequent swallowing noted. She denies any nipple discomfort, is feeding as required and waking infant to feed if needed. Infant has had several effective feedings in the past 24 hours, and is currently meeting outcomes for weight, output, jaundice and feeding frequencies. Mother states she feels confident to continue effective at home. Reviewed transition to breast milk, signs of adequate intake, and engorgement/relief. Instructed to call ICP if intake/output less than required. Reviewed regular medications mother is taking. Information provided per [facility]. Reviewed community resources on the [facility] website and in the Mom/Baby guide. Information on outpatient services provided. Mother has no further questions at this time. Instructed feeding should be initiated three hours from start of last feeding or if feeding cues are noted before until seen by ICP. Mother voiced understanding of information shared.
--- NOTE | 2021-08-01 09:01 | PC.NURSE ---
Self care and infant care discharge instructions given including follow up visit date and time. Pt. verbalized understanding. No questions or concerns voiced. Very quiet but comfortable with discharge. FOB at side.
[2021-08-01 12:59] VITALS: BP 115/55; PULSE 52; RESP 16; TEMP 36.4
[2021-08-01] MEDS: MEASLES,MUMPS,RUBELLA VACCINE 0.5 ML VIAL SUB-Q (13:32)
[2021-08-02 10:23] VITALS: BP 113/68; PULSE 62; RESP 16; TEMP 36.6; O2SAT 100
--- NOTE | 2021-08-04 14:12 | PM.OBDSVD ---
DS: Admitting Diagnosis Discharge Date 08/01/21 Admitting Diagnosis Labor OB - DS: Summary OB Procedures : None OB Procedures Intrapartum: Spontaneous Vag Delivery OB Procedures: : None Time Spent with Patient Time attestation: Total time spent providing and/or coordinating discharge services: DS: Data Data Completed and Pending Completed studies during hospitalization: Pending at discharge 08/01/21 07:34 Surgical [PTH] Routine Discharge Plan Discharge Attending physician on discharge: jairon Consulting providers: Caitlyn Holloway ; Krunal Walter Discharging Clinician: aCitlyn Holloway Patient Disposition: Home, Self-Care Activity: pelvic rest Diet: as tolerated Discharge Instructions: Education: Mom and Baby Guide Given to: Mother Follow-Up: Call your delivering provider's office for an appointment to be seen in: 4 Weeks Mom and baby should come to [facility] for the follow-up appointment. Appointment Date/Time: August 02, 2021 at 10:00 am What to expect at your follow-up visit: Blood Pressure Check Physical Assessment Call [phone] if you are unable to keep your appointment time. BREAST CARE: * Wear a snug supportive bra. * For engorgement discomfort: Breast Feeding: * Apply warm moist washcloths * Express milk as needed to relieve engorgement * Wear loose clothing Bottle Feeding: * May apply ice packs * For sore nipples: * Identify correct latch-on * Apply warm moist washcloths before and after nursing * Air dry nipples after nursing * May apply Lansinoh cream to nipples EPISIOTOMY/PERINEAL CARE: * Until bleeding stops, use your hernesto bottle after urinating * Change your pad frequently throughout the day * You may take sitz baths several times a day (fill your bathtub with warm water and soak for 20 minutes.) Do NOT bathe in the water * No tub baths until seen by your physician - You may shower ACTIVITY: * Rest as much as possible. * Do not exercise or lift anything heavier than your baby (such as laundry or other children.) * Avoid stairs or driving as much as possible. * Do not put anything into the vagina. No douching, tampons, or sexual activity until seen by physician. NOTIFY PHYSICIAN IF YOU HAVE ANY QUESTIONS OR IF ANY OF THE FOLLOWING SYMPTOMS OCCUR: * If your vaginal bleeding becomes foul smelling. * If your vaginal bleeding becomes more heavy than a period or if your bleeding changes from pink to bright red. However, you may pass an occasional walnut-sized clot once or twice for the first week . * If you experience a sharp, shooting pain in you calves. * If you discover a hard, reddened area on your breast or if you experience flu-like symptoms. DIET: * Eat regular, well-balanced meals. * Drink plenty of fluids daily. If , drink to thirst. Patient Instructions: Antibiotic Form Stand Alone Forms: General Discharge Information Follow-up/Referrals: Caitlyn Holloway CNM [Certified Nurse [employer]] - 4 Weeks Discharge Medications: Continued PNV [id number] [] 28 mg iron- 800 mcg Tablet 1 tablet PO DAILY RF: 0 Date of admission: 07/31/21 10:43 Primary Care Provider: PHYSICIAN NOT ON STAFF,NONSTAFF Admitting Provider: Fariba Sandhu Attending physician on admission: Fariba Sandhu Condition: Stable
== END 2021-08-01 14:03 | disposition home or self-care (01) | DRG 560 ==
LOC: ANHLDR 11:11 → ANHOB2 15:12
PROVIDERS: Advanced Practice Midwife; Admitting Provider Obstetrics & Gynecology; Visit Provider Obstetrics & Gynecology
DX: O24.420 Gestational diabetes mellitus in childbirth, diet controlled (principal); Z3A.38 38 weeks gestation of pregnancy; Z37.0 Single live birth
CPT/HCPCS: 36415; 76815; 82948; 85014; 85018; 85025; 86592; 86850; 86900; 86901; 88307; 90710; A9270; J2590